=== PATIENT | female | born 1980 | race Caucasian/White ===

== ENCOUNTER 2022-11-02 08:47 | Emergency (ER) | payer SELFPAY ==
--- NOTE | 2022-11-02 09:02 | EDPHYS ---
Physician Documentation [facility] Name: Devora Centeno Age: 42 yrs Sex: Female : 1980 Arrival Date: 11/02/2022 Time: 08:47 Bed 13 Private MD: ED Physician Adán Means HPI: 11/02 09:34 This 42 yrs old Female presents to ER via Ambulatory with complaints of Neck Pain, kb <24hrs Old, Shoulder Pain, Arm Pain. 09:34 The patient or guardian complains of pain, tenderness. The symptoms are located on the kb left posterior aspect of neck. Onset: The symptoms/episode began/occurred 3 day(s) ago. Context: The problem was sustained at home, The neck injury/problem resulted from possibly due to playing baseball. Associated signs and symptoms: Pertinent positives: tingling, The patient denies any alcohol use. The patient is not apparently intoxicated. No neurological symptoms were experienced by the patient prior to arrival in the emergency department. The pain radiates to the left arm. Modifying factors: The symptoms are alleviated by nothing. the symptoms are aggravated by nothing. Severity of symptoms: At their worst the symptoms were moderate, in the emergency department the symptoms are unchanged. The patient has not experienced similar symptoms in the past. The patient has not recently seen a physician. 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 - Social history:: Smoking status: unknown. ROS: 09:33 Constitutional: Negative for fever, chills, and weight loss. kb 09:33 Neck: Positive for pain with movement, pain at rest, tenderness. 09:33 All other systems are negative. Exam: 09:33 Constitutional: This is a well developed, well nourished patient who is awake, alert, kb and in no acute distress. Head/Face: Normocephalic, atraumatic. ENT: Moist Mucous membranes Cardiovascular: Regular rate and rhythm with a normal S1 and S2. No gallops, murmurs, or rubs. No pulse deficits. Respiratory: Respirations even and unlabored. No increased work of breathing. Talking in full sentences Skin: Warm, dry with normal turgor. Normal color. MS/ Extremity: Pulses equal, no cyanosis. Neurovascular intact. Full, normal range of motion. Neuro: Awake and alert, GCS 15, oriented to person, place, time, and situation. Moves all extremities. Normal gait. 09:33 Neck: External neck: tenderness, that is moderate, of the left posterior aspect of neck, C-spine: appears grossly normal. Vital Signs: 09:00 BP 133 / 82; Pulse 86; Resp 18; Temp 98.9; Pulse Ox 99% on R/A; eh3 MDM: 08:55 Patient medically screened. kb 09:32 Differential diagnosis: Cervical Raiculopathy cervical strain, torticollis. Data kb reviewed: vital signs, nurses notes. Test considered but Not performed: X-ray: x-ray cervical spine considered, but pt has no cervical tenderness. History consistent with radiculopathy. Counseling: I had a detailed discussion with the patient and/or guardian regarding: the historical points, exam findings, and any diagnostic results supporting the discharge/admit diagnosis, the need for outpatient follow up, a family practitioner, to return to the emergency department if symptoms worsen or persist or if there are any questions or concerns that arise at home. Administered Medications: 09:10 Drug: Dexamethasone IM 10 mg Route: IM; Site: right ventrogluteal; eh3 09:19 Follow up: Response: No adverse reaction 3 09:10 Drug: Ketorolac IM 30 mg Route: IM; Site: right ventrogluteal; eh3 09:19 Follow up: Response: No adverse reaction 3 Disposition: 11:01 Co-signature as Attending Physician, Adán Means MD I reviewed the patient's care rn provided by the Advanced Practice Provider and agree with the diagnosis and treatment plan. Disposition Summary: 11/02/22 09:01 Discharge Ordered Location: Home kb Condition: Stable kb Diagnosis - Radiculopathy, cervical region kb Followup: kb - With: Emergency Department - When: As needed - Reason: Worsening of condition Followup: kb - With: Private Physician - When: 2 - 3 days - Reason: Recheck today's complaints, Continuance of care, Re-evaluation by your physician Discharge Instructions: - Discharge Summary Sheet kb - Cervical Radiculopathy, Aghy-al-Xecy kb Forms: - Medication Reconciliation Form kb - Thank You Letter kb - Antibiotic Education kb - Prescription Opioid Use kb Prescriptions: - Prednisone 20 mg Oral Tablet - take 1 tablet by ORAL route once daily for 5 days; 5 tablet; Refills: 0, kb Product Selection Permitted - Cyclobenzaprine 10 mg Oral Tablet - take 1 tablet by ORAL route every 8 hours As needed; 15 tablet; Refills: 0, kb Product Selection Permitted Signatures: Coby Bernal, Adán Crowley MD MD rn HollandAzucena RN RN eh3
[2022-11-02] MEDS ORDERED: KETOROLAC 30 MG/ML INJ ONE (09:14)
[2022-11-02] MEDS ORDERED: dexAMETHasone 10 MG/ML VIAL ONE (09:14)
--- NOTE | 2022-11-02 09:26 | ER ---
Nurse's Notes [facility] Name: Devora Centeno Age: 42 yrs Sex: Female : 1980 Arrival Date: 11/02/2022 Time: 08:47 Bed 13 Private MD: Diagnosis: Radiculopathy, cervical region Presentation: 11/02 09:00 Chief complaint: Patient states: Neck pain radiating to left arm for last 5 days. eh3 Coronavirus screen: Vaccine status: Patient reports receiving the 2nd dose of the covid vaccine. Ebola Screen: No symptoms or risks identified at this time. Initial Sepsis Screen: Does the patient meet any 2 criteria? No. Patient's initial sepsis screen is negative. Does the patient have a suspected source of infection? No. Patient's initial sepsis screen is negative. Risk Assessment: Do you want to hurt yourself or someone else? Patient reports no desire to harm self or others. Onset of symptoms was October 28, 2022. 09:00 Method Of Arrival: Ambulatory 3 09:00 Acuity: DAVID 4 eh3 Triage Assessment: 09:00 General: Appears in no apparent distress. uncomfortable, Behavior is calm, cooperative, eh3 appropriate for age. Pain: Complains of pain in neck Pain radiates to left arm. EENT: No deficits noted. Neuro: Level of Consciousness is awake, alert, obeys commands, Oriented to person, place, time, situation. Cardiovascular: Capillary refill < 3 seconds Patient's skin is warm and dry. Respiratory: Airway is patent Respiratory effort is even, unlabored, Respiratory pattern is regular, symmetrical. GI: Abdomen is round non-distended. : No signs and/or symptoms were reported regarding the genitourinary system. Derm: Skin is pink, warm \T\ dry. Musculoskeletal: Circulation, motion, and sensation intact. Range of motion: limited in left shoulder. 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 - Social history:: Smoking status: unknown. Screenin:00 [facility] ED Fall Risk Assessment (Adult) Score/Fall Risk Level 0 - 2 = Low Risk. Abuse eh3 screen: Denies threats or abuse. Denies injuries from another. Nutritional screening: No deficits noted. Tuberculosis screening: No symptoms or risk factors identified. Assessment: 09:00 Reassessment: No changes from previously documented assessment. See triage assessment. 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 Vital Signs: 09:00 BP 133 / 82; Pulse 86; Resp 18; Temp 98.9; Pulse Ox 99% on R/A; eh3 ED Course: 08:49 Patient arrived in ED. rg4 08:55 [facility] Bernal [facility]C [facility] kb 08:55 Adán Means MD is Attending Physician. kb 09:00 Arm band placed on. eh3 09:00 Patient has correct armband on for positive identification. eh3 09:00 No provider procedures requiring assistance completed. Patient did not have IV access eh3 during this emergency room visit. 09:04 Azucena Mckeon RN is Primary Nurse. eh3 09:16 Triage completed. eh3 Administered Medications: 09:10 Drug: Dexamethasone IM 10 mg Route: IM; Site: right ventrogluteal; eh3 09:19 Follow up: Response: No adverse reaction eh3 09:10 Drug: Ketorolac IM 30 mg Route: IM; Site: right ventrogluteal; eh3 09:19 Follow up: Response: No adverse reaction eh3 Medication: 09:00 VIS not applicable for this client. eh3 Outcome: 09:01 Discharge ordered by . kb 09:19 Discharged to home ambulatory. eh3 09:19 Condition: stable 09:19 Discharge instructions given to patient, Instructed on discharge instructions, follow up and referral plans. medication usage, Demonstrated understanding of instructions, follow-up care, medications, Prescriptions given X 2. 09:25 Patient left the ED. eh3 Signatures: Coby Bernal FNP-C FNP-Ckb Garcia, Rubi rg4 Azucena Mckeon, PITER RN eh3
[2022-11-02 09:38] VITALS: BP 133/82; TEMP 98.9; O2SAT 99
== END 2022-11-02 09:25 | disposition home or self-care (01) ==
LOC: ER 08:47
DX: M54.12 Radiculopathy, cervical region (principal)
CPT/HCPCS: 96372; 99284; J1100